=== PATIENT | female | born 1955 | race Two or more races ===

== ENCOUNTER 2020-02-07 08:20 | Day surgery (SDC) | payer OTHER ==
[2020-02-07] VITALS (8 sets, daily range): BP systolic 92–129; BP diastolic 57–76
[~2020-02-07] VITALS: Ht 160 cm; Wt 70.3 kg
--- NOTE | 2020-02-07 07:01 | Anethesia Preoperative Eval ---
Anesthesia Pre-op PMH/ROS General Date of Evaluation: Feb 07, 2020 Time of Evaluation: 07:01 Anesthesiologist: riley ASA Score: ASA 3 Mallampati Score Class I : Soft palate, uvula, fauces, pillars visible Class II: Soft palate, uvula, fauces visible Class III: Soft palate, base of uvula visible Class IV: Only hard plate visible Mallampati Classification: Class II Surgeon: gio Diagnosis: gerd Surgical Procedure: egd Anesthesia History: none Social History: smoking - former smoker Family History: no anesthesia problems Allergies: Coded Allergies: No Known Allergies (Unverified , 02/03/20) Medications: see eMAR Patient NPO?: Yes Past Medical History Cardiovascular: Reports: HTN, other - hyperlipidemia Pulmonary: Reports: asthma Gastrointestinal/Genitourinary: Reports: GERD, other - gallstones,kidney stones ,cervical cancer, Neurologic/Psychiatric: Reports: depression/anxiety, other - peripheral neuropathy Musculoskeletal/Integumentary: Reports: OA Anesthesia Pre-op Phys. Exam Physician Exam Last Vital Signs Date Time Temp Pulse Resp B/P (MAP) Pulse Ox O2 Delivery O2 Flow Rate FiO2 02/07/20 08:46 97.8 81 18 129/76 96 Room Air Constitutional: NAD Neurologic: CN 2-12 intact Cardiovascular: RRR Respiratory: CTA Gastrointestinal: S/NT/ND Airway Exam Mallampati Score: Class II MO: limited Neck: flexible TMD: 2fb ROM: limited Teeth: intact Anesthesia Pre-op A/P Labs Microbiology Date/Time Source Procedure Growth Status 02/06/20 11:00 Nasopharynx SARS-CoV-2 RdRp Gene Assay - Final Complete Risk Assessment & Plan Assessment: asa3 Plan: mac Status Change Before Surgery: No Pre-Antibiotics Drug: Renetta Hensley MD Feb 07, 2020 07:01
[~2020-02-07 08:20] MED LIST: Atropine Inj 1mg/10ml Syr IV PRN; DiphenhydrAMINE 50mg/ml Inj IVP PRN; LR 1000ml 1,000 ML IVLG SCH; Midazolam 2mg/2ml Inj IVP PRN; fentaNYL 100 mcg/2 mL IV PRN
--- NOTE | 2020-02-07 08:27 | Short Stay Surgery H&P ---
History of Present Illness History of Present Illness Chief Complaint abdominal pains, nausea and dysphagia HPI Alee Jean is a 64 year old female who was admitted on for GERD/ abdominal pains and nausea with dysphagia Patient History Allergies: Coded Allergies: No Known Allergies (Unverified , 02/03/20) PAST MEDICAL HISTORY: (1) Hypertension (2) Hyperlipidemia (3) Gall bladder stones (4) Asthma (5) Rheumatoid arteritis (6) History of hip replacement Review of Systems Cardiovascular: Reports: hypertension Respiratory: Reports: asthma Skeletal: Reports: rheumatoid arthritis Gastrointestinal: Reports: gastro esophageal reflux disease Genitourinary: Reports: no symptoms Neurologic: Reports: no symptoms Endocrine: Reports: no symptoms Hematologic: Reports: no symptoms Physical Exam Skin: normal HENT: normal Heart: normal Lungs: normal Abdomen: abnormal Extremities: normal Genitourinary: normal Plan Plan of Care Upper GI endoscopy with biopsy Preop Interventions None Summary of Findings See the reports Attestation Are the patient's medical conditions optimized for surgery? Attestation Response: yes Heri Ren MD Feb 07, 2020 08:27
--- NOTE | 2020-02-07 08:28 | Pre-Procedure Note/Attestation ---
Pre-Procedure Note/Attestation Complete Prior to Procedure Planned Procedure: left Procedure Narrative: Examination of the upper GI tract via endoscopy with obtaining biopsy Indications for Procedure Pre-Operative Diagnosis: R/O peptic ulcer, esophagitis, gastritis Attestation I attest that I discussed the nature of the procedure; its benefits; risks and complications; and alternatives (and the risks and benefits of such alternatives ), prior to the procedure, with the patient (or the patient's legal office machines sales representative). I attest that, if there was a reasonable possibility of needing a blood transfusion, the patient (or the patient's legal office machines sales representative) was given the [place] [employer] [facility] [employer] [facility] standardized written summary, pursuant to the [place] Blood Safety Act ([place] Health and Safety Code # 1645, as amended). I attest that I re-evaluated the patient just prior to the surgery and that there has been no change in the patient's H&P, except as documented below: Heri Ren MD Feb 07, 2020 08:28
--- NOTE | 2020-02-07 08:31 | Discharge Instructions ---
Discharge Instructions Discharge Instructions Follow up with: Doctor will send the report to referal source. Call doctor to get a copy. For Congestive Heart Failure Reminder Report to your physician any weight gain of 5 pounds or more in one week. Heri Ren MD Feb 07, 2020 08:31
[2020-02-07] MEDS ORDERED: NEURONTIN100 MG ORAL (08:46)
[2020-02-07] MEDS ORDERED: METOPROLOL TART50 M1 ORAL (08:46)
[2020-02-07] MEDS ORDERED: ATORVASTATIN CA20 MG ORAL (08:46)
[2020-02-07] MEDS ORDERED: Lidocaine 1% MPF 10mg/ml 5ml ONE (09:00)
[2020-02-07] MEDS ORDERED: LR 1000ml ONE (09:00)
--- NOTE | 2020-02-07 09:14 | Endoscopy Procedure Note ---
Endoscopy Procedure Note General Indication for Procedure: Abdominal pains, dysphagia and nasuea with heartbutn Procedures Performed: EGD - Small Hital hernia found; otherwise completely normal Upper GI. endoscopy. Biopsy was done, per random, from the gastric body Specimen: yes Pt Tolerated Procedure Well: Yes Estimated Blood Loss: none Anesthesia Anesthesiologist: Dr. Painting Anesthesia: moderate sedation Inserted Devices Implant(s) used?: No Quality Quality of Bowel Preparation: Excellent Was there any complications?: No GI Core Measures 50 yrs or older w/o bx or poly: Not Applicable 10yrs. F/U recommended: Not Applicable If not recommended, why?: Med reason:<3 yrs.: System Reason:<3 yrs.: Heri Ren MD Feb 07, 2020 09:14
--- NOTE | 2020-02-07 09:29 | Immediate Post-Op Evaluation ---
Immediate Post-Op Evalulation Immediate Post-Op Evalulation Procedure: egd w/bx Date of Evaluation: Feb 07, 2020 Time of Evaluation: 09:29 IV Fluids: 300ml lr Blood Products: none Estimated Blood Loss: negligible Blood Pressure Systolic: 106 Blood Pressure Diastolic: 58 Pulse Rate: 81 Respiratory Rate: 18 O2 Sat by Pulse Oximetry: 100 Temperature (Fahrenheit): 97.3 Pain Score (1-10): 0 Nausea: No Vomiting: No Complications none Patient Status: awake, reacts, patent Hydration Status: adequate Drug: Renetta Hensley MD Feb 07, 2020 09:29
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
--- NOTE | 2020-02-07 10:45 | Procedure Note ---
DATE OF PROCEDURE: 02/07/2020 SURGEON: Heri Ren M.D. PROCEDURE: Esophagogastroduodenoscopy with biopsy. PREOPERATIVE DIAGNOSES: Abdominal pain, history of chronic acid reflux, rule out NSAID-induced gastropathy, peptic ulcer disease, esophagitis. POSTOPERATIVE DIAGNOSIS: Small hiatal hernia otherwise completely normal upper GI endoscopy. Biopsy was taken per random from gastric body. MEDICATION USED: Per Dr. Ko, anesthesiologist. INSTRUMENT: GIF Olympus upper GI video endoscope. DESCRIPTION OF PROCEDURE: The patient after arriving in the endoscopy unit, was told about risks and benefits of the procedure. At this time, she was put on the left lateral decubitus position. After adequate IV sedation, the scope was gently passed through the cricopharyngeal area, was lodged into the upper esophagus and gradually advanced towards gastroesophageal junction. The entire length of esophagus looked normal. No evidence of any varices, stricture, polyps, tumor, inflammatory process, etc. The scope finally got to the GE junction where the finding was presence of a small hiatal hernia. There was no John's however. The scope was then guided into the stomach. Gastric cavity was distended with insufflation of air. Gradually, the areas of the fundus and the body and the antrum were examined which revealed basically normal gastric mucosa without any evidence of ulcers, tumors, polyps, angiodysplasias, etc. There was minimal amount of bile in the stomach of no great significance. The retroflexion maneuver was applied and the area of the gastroesophageal junction was examined, which revealed also normal findings. Finally, a random biopsy from gastric body, greater curvature side was obtained and subsequently the scope was passed through the pylorus. First and second portion of duodenum were found to be also completely within normal limits. No pathological findings were noted. Finally, the scope was pulled out and procedure was terminated. The patient tolerated the procedure well and left the endoscopy room in a good condition. Heri Ren M.D. DR: Phillip JOB#: [id number] CC:
== END 2020-02-07 10:20 | disposition home or self-care (01) ==
LOC: GAS 08:20
DX: K44.9 Diaphragmatic hernia without obstruction or gangrene (principal); Z87.11 Personal history of peptic ulcer disease; K21.9 Gastro-esophageal reflux disease without esophagitis; I10 Essential (primary) hypertension; M06.9 Rheumatoid arthritis, unspecified; Z79.899 Other long term (current) drug therapy; E78.5 Hyperlipidemia, unspecified; Z96.649 Presence of unspecified artificial hip joint
CPT/HCPCS: 43239; 94003; J2704; J7120; U0002; 94150